=== PATIENT | male | born 1965 | race Caucasian/White ===

== ENCOUNTER 2016-11-16 09:51 | Emergency (ER) ==
[2016-11-16] MEDS ORDERED: ASPIRIN PO STA (10:00)
--- NOTE | 2016-11-16 10:12 | EKG Report ---
Test Performed on : 11/16/2016 09:58:29 AM Test Reason : CHEST PAIN Blood Pressure : / mmHG Vent. Rate : 071 BPM Atrial Rate : 071 BPM P-R Int : 170 ms QRS Dur : 088 ms QT Int : 408 ms P-R-T Axes : 045 003 031 degrees QTc Int : 443 ms Normal sinus rhythm. Normal ECG No previous ECGs available Unconfirmed Result
--- NOTE | 2016-11-16 10:12 | PROVIDER DOCUMENTATION ---
Addendum entered and electronically signed by Ramya Cabrera Scribe 11/16/16 13 :54: Attestation - Scribe Verification/Attestation Scribe:: Ramya Cabrera Acting as Scribe for:: Janet Medina Scribe documention review:: This chart was documented by a scribe and accurately reflects the service the provider performed and the decisions made by the provider. Original Note: HPI-Chest Pain - General Source: patient - History of Present Illness-CP Location: reports: substernal Chest Pain Radiation: reports: no radiation Quality of Pain: reports: tightness Severity in ED: moderate Onset/Duration: 24 hours ago Timing: still present Nitro Today/Relief: no nitro taken today Aspirin Treatment Today: 325 mg x 1, provided by ED Prior Chest Pain/Cardiac Workup: reports: no prior chest pain, no prior cardiac workup Similar Symptoms Previously?: No Recently Seen Here or By Another Healthcare Provider: No <Ramya Cabrera - Last Filed: 11/16/16 12:41> <Janet Medina - Last Filed: 11/16/16 13:45> - General Chief Complaint: Chest Pain Stated Complaint: CHEST PAIN/DIZZINESS/SOB Time Seen by Provider: 11/16/16 10:00 Allergies/Adverse Reactions: Patient Allergies Allergy/AdvReac Type Severity Reaction Status Date / Time No Known Allergies Allergy Verified 08/22/13 13:20 - History of Present Illness-CP Nature of Presenting Problem: Reports to er with cc of midsternal chest pain since yesterday while at work intermittently with sob and dizziness. Reports worsened last night upon laying down in bed states propped self up to sleep. Reports started again this am. Denies n,v,tingling,diaphoresis.No cardiac hx. No everyday meds. Reports use to have acid reflux until surgery in 2002 for chrons disease. Reports was belching last night. (Ramya Cabrera) Review of Systems - Adult - REVIEW OF SYSTEMS - ADULT Constitutional: denies: chills, fever, fatique Eyes: reports: no symptoms reported Ears, Nose, Mouth & Throat: denies: ear pain, sinus problem, throat pain Cardiovascular: reports: chest pain. denies: irregular heart rate, orthopnea, syncope Respiratory: reports: shortness of breath. denies: chronic cough, cough, wheezing Gastrointestinal: reports: no symptoms reported Genitourinary: reports: no symptoms reported Musculoskeletal: reports: no symptoms reported Integumentary: reports: no symptoms reported Neurological: reports: dizziness/vertigo. denies: headache/migraines, loss of balance, numbness, paresthesia Psychiatric: reports: no symptoms reported Endocrine: reports: no symptoms reported Hematologic/Lymphatic: reports: no symptoms reported Allergic/Immunologic: reports: no symptoms reported All Other Systems: Reviewed and Negative <Ramya Cabrera - Last Filed: 11/16/16 12:41> Past History - Adult - PAST MEDICAL HISTORY-ADULT Review of Records: reports: Nursing Assessment Review Major Childhood Illnesses: reports: denies history Cardiovascular: reports: denies history Genitourinary: reports: kidney stones - PRIOR SURGERIES/PROCEDURES Surgical/Procedure History: reports: other (colon sx) - IMMUNIZATION STATUS Childhood Immunizations: See Nurse Assessment Flu Vaccine: See Nurse Assessment - SOCIAL HISTORY Smoking: cigarettes, less than 1 pack/day Provider spent 3-5 mins advising pt. on dangers of tobacco.: Discussed manners to quit use, and f/u contacts for add'l counseling. Substance Use: alcohol <Ramya Cabrera - Last Filed: 11/16/16 12:41> Physical Exam-General - PHYSICAL EXAM-ADULT Initial Vital Signs Reviewed: Yes - CONSTITUTIONAL General Appearance: appears well, alert, no apparent distress - EYES Eyes: PERRL/EOMI - NECK Neck: non-tender, full range of motion, supple, normal inspection - RESPIRATORY Respiratory: chest non-tender, lungs clear, normal breath sounds, no pleuratic chest pain, no respiratory distress, no accessory muscle use - CARDIOVASCULAR Cardiovascular: normal peripheral pulses, regular rate, rhythm, no edema, no gallop, no JVD, no murmur - GASTROINTESTINAL (ABDOMEN) Abdominal Exam: non tender, soft, no organomegaly, no pulsatile mass - MUSCULOSKELETAL Back Exam: normal inspection, no CVA tenderness, no vertebral tenderness Extremity: normal range of motion, non-tender - SKIN Integumentary: normal color, normal turgor, warm/dry - NEUROLOGIC Neurologic: grossly normal - PSYCHIATRIC Psych/Mental Status: normal mood/affect, normal thought content, normal thought process, oriented x 3 <Ramya Cabrera - Last Filed: 11/16/16 12:41> Progress - EKG 1 Time of EKG reading by physician:: 09:58 EKG Read and Signed by:: Janet Medina EKG Interpretation (*Must complete 3 of following elements*): Normal Rate: 71 Rhythm: nsr [place]: normal QRS: normal - XRAY 1 XRAY: Bilateral XRAY Study: Chest Impression: Normal XRAY Interpretation: neg <Ramya Cabrera - Last Filed: 11/16/16 12:41> - REASSESSMENT Reassessment #1 Time Reassessed: 13:43 Status: improving (Pt feels much better after taking Ativan and burpped 4 times , reports his chest discomfort completely resolved. Wants to be discharged. Will f/u with PCP for an out patient stress test.) <Janet Medina - Last Filed: 11/16/16 13:45> - PLAN OF CARE/RESULTS Progress/Plan/Lab Results: Orders Category Date Time Status Cardiac Monitoring DIRECTED Care 11/16/16 10:01 Active Oxygen Therapy- ED Nursing DIRECTED Care 11/16/16 10:01 Active Saline Loc NOW Care 11/16/16 10:01 Active CHEST-2 VIEWS [RAD] Stat Exams 11/16/16 10:01 Taken CBC WITH ELECTRONIC DIFF [HEME] Stat Lab 11/16/16 10:07 Completed CK PROFILE [SP CHEM] Stat Lab 11/16/16 10:07 Received COMPREHENSIVE METABOLIC PANEL [CHEM] Stat Lab 11/16/16 10:07 Received D-DIMER PL [COAG] Stat Lab 11/16/16 10:07 Received LIPASE [CHEM] Stat Lab 11/16/16 10:07 Received MAGNESIUM [CHEM] Stat Lab 11/16/16 10:07 Received PRO B-NATRIURETIC PEPTIDE Stat Lab 11/16/16 10:07 Received PR[address]IME WITH INR PL [COAG] Stat Lab 11/16/16 10:[address] [COAG] Stat Lab 11/16/16 10:07 Received TROPONIN T Stat Lab 11/16/16 10:07 Received UDS [URINE DRUG SCREEN PL] Stat Lab 11/16/16 10:[address] W/POSS RFLX CULT [URINALYSIS] Stat Lab 11/16/16 10:02 Uncollected Aspirin Med 11/16/16 10:00 Discontinued 325 mg PO STAT STA EKG [EKG] Stat Ther 11/16/16 10:01 Draft Laboratory Tests 11/16/16 11/16/16 11/16/16 10:07 10:07 10:07 WBC RBC Hgb Hct MCV MCH MCHC RDW Std Deviation Plt Count MPV Immature Gran % (Auto) Neut % (Auto) Lymph % (Auto) [place] % (Auto) Eos % (Auto) Baso % (Auto) Immature Gran # (Auto) Neut # (Auto) Lymph # (Auto) [place] # (Auto) Eos # (Auto) Baso # (Auto) PT INR APTT (Factor Assay) D-Dimer Sodium 136 Potassium 4.1 Chloride 102 Carbon Dioxide 24 L Anion Gap 10 BUN 23 H Creatinine 0.8 Estimated GFR/1.73 m2 > 60 BUN/Creatinine Ratio 29 Glucose 108 H Calculated Osmolality 276 Calcium 10.1 Magnesium 2.0 Total Bilirubin 0.20 AST 25 ALT 27 Alkaline Phosphatase 93 Creatine Kinase 86 Troponin T < 0.010 Dow-U-Ygbobailqag Pept 47 Total Protein 6.9 Albumin 4.2 Globulin 3.0 Albumin/Globulin Ratio 2.0 Lipase Urine Source Urine Color Urine Clarity Urine pH Ur Specific [place] Urine Protein Urine Ketones Urine Blood Urine Nitrite Urine Bilirubin Urine Urobilinogen Urine Microscopic RBC Urine WBC Ur Epithelial Cells Urine Glucose Urine Opiates Screen Ur Oxycodone Screen Urine Methadone Screen Ur Barbituates Screen Ur Tricyclics Screen Ur Phencyclidine Scrn Ur Amphetamines Screen U Methamphetamines Scrn Urine MDMA Screen U Benzodiazepines Scrn Urine Cocaine Screen U Cannabinoids Screen 11/16/16 11/16/16 11/16/16 10:07 10:07 10:07 WBC 10.15 RBC 4.92 Hgb 15.0 Hct 44.7 MCV 90.9 MCH 30.5 MCHC 33.6 RDW Std Deviation 14.2 Plt Count 227 MPV 11.0 H Immature Gran % (Auto) 0.2 Neut % (Auto) 76.3 H Lymph % (Auto) 14.9 L [place] % (Auto) 7.5 Eos % (Auto) 0.9 Baso % (Auto) 0.2 Immature Gran # (Auto) 0.02 Neut # (Auto) 7.75 H Lymph # (Auto) 1.51 [place] # (Auto) 0.76 H Eos # (Auto) 0.09 Baso # (Auto) 0.02 PT 12.8 INR 0.93 APTT (Factor Assay) 28.1 D-Dimer 0.34 Sodium Potassium Chloride Carbon Dioxide Anion Gap BUN Creatinine Estimated GFR/1.73 m2 BUN/Creatinine Ratio Glucose Calculated Osmolality Calcium Magnesium Total Bilirubin AST ALT Alkaline Phosphatase Creatine Kinase Troponin T Zpd-J-Gownjnjwrqa Pept Total Protein Albumin Globulin Albumin/Globulin Ratio Lipase 18 Urine Source Urine Color Urine Clarity Urine pH Ur Specific [place] Urine Protein Urine Ketones Urine Blood Urine Nitrite Urine Bilirubin Urine Urobilinogen Urine Microscopic RBC Urine WBC Ur Epithelial Cells Urine Glucose Urine Opiates Screen Ur Oxycodone Screen Urine Methadone Screen Ur Barbituates Screen Ur Tricyclics Screen Ur Phencyclidine Scrn Ur Amphetamines Screen U Methamphetamines Scrn Urine MDMA Screen U Benzodiazepines Scrn Urine Cocaine Screen U Cannabinoids Screen 11/16/16 11/16/16 11/16/16 12:06 12:06 Unknown WBC RBC Hgb Hct MCV MCH MCHC RDW Std Deviation Plt Count MPV Immature Gran % (Auto) Neut % (Auto) Lymph % (Auto) [place] % (Auto) Eos % (Auto) Baso % (Auto) Immature Gran # (Auto) Neut # (Auto) Lymph # (Auto) [place] # (Auto) Eos # (Auto) Baso # (Auto) PT INR APTT (Factor Assay) D-Dimer Sodium Potassium Chloride Carbon Dioxide Anion Gap BUN Creatinine Estimated GFR/1.73 m2 BUN/Creatinine Ratio Glucose Calculated Osmolality Calcium Magnesium Total Bilirubin AST ALT Alkaline Phosphatase Creatine Kinase 78 Troponin T < 0.010 Cfv-P-Jvaqrxbznsc Pept Total Protein Albumin Globulin Albumin/Globulin Ratio Lipase Urine Source CLEAN CATCH Urine Color YELLOW Urine Clarity CLEAR Urine pH 6.5 Ur Specific [place] 1.010 Urine Protein NEGATIVE Urine Ketones NEGATIVE Urine Blood NEGATIVE Urine Nitrite NEGATIVE Urine Bilirubin NEGATIVE Urine Urobilinogen NORMAL Urine Microscopic RBC Not Reportable Urine WBC NEGATIVE Ur Epithelial Cells <10 Urine Glucose NEGATIVE Urine Opiates Screen Ur Oxycodone Screen Urine Methadone Screen Ur Barbituates Screen Ur Tricyclics Screen Ur Phencyclidine Scrn Ur Amphetamines Screen U Methamphetamines Scrn Urine MDMA Screen U Benzodiazepines Scrn Urine Cocaine Screen U Cannabinoids Screen 11/16/16 Unknown WBC RBC Hgb Hct MCV MCH MCHC RDW Std Deviation Plt Count MPV Immature Gran % (Auto) Neut % (Auto) Lymph % (Auto) [place] % (Auto) Eos % (Auto) Baso % (Auto) Immature Gran # (Auto) Neut # (Auto) Lymph # (Auto) [place] # (Auto) Eos # (Auto) Baso # (Auto) PT INR APTT (Factor Assay) D-Dimer Sodium Potassium Chloride Carbon Dioxide Anion Gap BUN Creatinine Estimated GFR/1.73 m2 BUN/Creatinine Ratio Glucose Calculated Osmolality Calcium Magnesium Total Bilirubin AST ALT Alkaline Phosphatase Creatine Kinase Troponin T Zng-E-Cxteoruqnpy Pept Total Protein Albumin Globulin Albumin/Globulin Ratio Lipase Urine Source Urine Color Urine Clarity Urine pH Ur Specific [place] Urine Protein Urine Ketones Urine Blood Urine Nitrite Urine Bilirubin Urine Urobilinogen Urine Microscopic RBC Urine WBC Ur Epithelial Cells Urine Glucose Urine Opiates Screen NONE DETECTED Ur Oxycodone Screen NONE DETECTED Urine Methadone Screen NONE DETECTED Ur Barbituates Screen NONE DETECTED Ur Tricyclics Screen NONE DETECTED Ur Phencyclidine Scrn NONE DETECTED Ur Amphetamines Screen NONE DETECTED U Methamphetamines Scrn NONE DETECTED Urine MDMA Screen NONE DETECTED U Benzodiazepines Scrn NONE DETECTED Urine Cocaine Screen NONE DETECTED U Cannabinoids Screen NONE DETECTED Vital Signs - 24 hr 11/16/16 11/16/16 11/16/16 10:00 10:30 11:30 Pulse Rate 76 66 62 Respiratory 20 16 16 Rate Blood Pressure 125/80 111/67 101/66 O2 Sat by Pulse 95 97 95 Oximetry Pt refused GI cocktail reports he isnt hurting and its not acid reflux. Pt now reports he thinks its anxiety and believes ativan would help agreed to give 1mg of ativan. (Ramya Cabrera) Laboratory Results - last 24 hr 11/16/16 11/16/16 11/16/16 10:07 10:07 10:07 WBC RBC Hgb Hct MCV MCH MCHC RDW Std Deviation Plt Count MPV Immature Gran % (Auto) Neut % (Auto) Lymph % (Auto) [place] % (Auto) Eos % (Auto) Baso % (Auto) Immature Gran # (Auto) Neut # (Auto) Lymph # (Auto) [place] # (Auto) Eos # (Auto) Baso # (Auto) PT INR APTT (Factor Assay) D-Dimer Sodium 136 Potassium 4.1 Chloride 102 Carbon Dioxide 24 L Anion Gap 10 BUN 23 H Creatinine 0.8 Estimated GFR/1.73 m2 > 60 BUN/Creatinine Ratio 29 Glucose 108 H Calculated Osmolality 276 Calcium 10.1 Magnesium 2.0 Total Bilirubin 0.20 AST 25 ALT 27 Alkaline Phosphatase 93 Creatine Kinase 86 Troponin T < 0.010 Hei-I-Tipomtfjnvl Pept 47 Total Protein 6.9 Albumin 4.2 Globulin 3.0 Albumin/Globulin Ratio 2.0 Lipase Urine Source Urine Color Urine Clarity Urine pH Ur Specific [place] Urine Protein Urine Ketones Urine Blood Urine Nitrite Urine Bilirubin Urine Urobilinogen Urine Microscopic RBC Urine WBC Ur Epithelial Cells Urine Glucose Urine Opiates Screen Ur Oxycodone Screen Urine Methadone Screen Ur Barbituates Screen Ur Tricyclics Screen Ur Phencyclidine Scrn Ur Amphetamines Screen U Methamphetamines Scrn Urine MDMA Screen U Benzodiazepines Scrn Urine Cocaine Screen U Cannabinoids Screen 11/16/16 11/16/16 11/16/16 10:07 10:07 10:07 WBC 10.15 RBC 4.92 Hgb 15.0 Hct 44.7 MCV 90.9 MCH 30.5 MCHC 33.6 RDW Std Deviation 14.2 Plt Count 227 MPV 11.0 H Immature Gran % (Auto) 0.2 Neut % (Auto) 76.3 H Lymph % (Auto) 14.9 L [place] % (Auto) 7.5 Eos % (Auto) 0.9 Baso % (Auto) 0.2 Immature Gran # (Auto) 0.02 Neut # (Auto) 7.75 H Lymph # (Auto) 1.51 [place] # (Auto) 0.76 H Eos # (Auto) 0.09 Baso # (Auto) 0.02 PT 12.8 INR 0.93 APTT (Factor Assay) 28.1 D-Dimer 0.34 Sodium Potassium Chloride Carbon Dioxide Anion Gap BUN Creatinine Estimated GFR/1.73 m2 BUN/Creatinine Ratio Glucose Calculated Osmolality Calcium Magnesium Total Bilirubin AST ALT Alkaline Phosphatase Creatine Kinase Troponin T Bnn-K-Jizcixxulbh Pept Total Protein Albumin Globulin Albumin/Globulin Ratio Lipase 18 Urine Source Urine Color Urine Clarity Urine pH Ur Specific [place] Urine Protein Urine Ketones Urine Blood Urine Nitrite Urine Bilirubin Urine Urobilinogen Urine Microscopic RBC Urine WBC Ur Epithelial Cells Urine Glucose Urine Opiates Screen Ur Oxycodone Screen Urine Methadone Screen Ur Barbituates Screen Ur Tricyclics Screen Ur Phencyclidine Scrn Ur Amphetamines Screen U Methamphetamines Scrn Urine MDMA Screen U Benzodiazepines Scrn Urine Cocaine Screen U Cannabinoids Screen 11/16/16 11/16/16 11/16/16 12:06 12:06 Unknown WBC RBC Hgb Hct MCV MCH MCHC RDW Std Deviation Plt Count MPV Immature Gran % (Auto) Neut % (Auto) Lymph % (Auto) [place] % (Auto) Eos % (Auto) Baso % (Auto) Immature Gran # (Auto) Neut # (Auto) Lymph # (Auto) [place] # (Auto) Eos # (Auto) Baso # (Auto) PT INR APTT (Factor Assay) D-Dimer Sodium Potassium Chloride Carbon Dioxide Anion Gap BUN Creatinine Estimated GFR/1.73 m2 BUN/Creatinine Ratio Glucose Calculated Osmolality Calcium Magnesium Total Bilirubin AST ALT Alkaline Phosphatase Creatine Kinase 78 Troponin T < 0.010 Zck-D-Nsuqrhwsvws Pept Total Protein Albumin Globulin Albumin/Globulin Ratio Lipase Urine Source CLEAN CATCH Urine Color YELLOW Urine Clarity CLEAR Urine pH 6.5 Ur Specific [place] 1.010 Urine Protein NEGATIVE Urine Ketones NEGATIVE Urine Blood NEGATIVE Urine Nitrite NEGATIVE Urine Bilirubin NEGATIVE Urine Urobilinogen NORMAL Urine Microscopic RBC Not Reportable Urine WBC NEGATIVE Ur Epithelial Cells <10 Urine Glucose NEGATIVE Urine Opiates Screen Ur Oxycodone Screen Urine Methadone Screen Ur Barbituates Screen Ur Tricyclics Screen Ur Phencyclidine Scrn Ur Amphetamines Screen U Methamphetamines Scrn Urine MDMA Screen U Benzodiazepines Scrn Urine Cocaine Screen U Cannabinoids Screen 11/16/16 Unknown WBC RBC Hgb Hct MCV MCH MCHC RDW Std Deviation Plt Count MPV Immature Gran % (Auto) Neut % (Auto) Lymph % (Auto) [place] % (Auto) Eos % (Auto) Baso % (Auto) Immature Gran # (Auto) Neut # (Auto) Lymph # (Auto) [place] # (Auto) Eos # (Auto) Baso # (Auto) PT INR APTT (Factor Assay) D-Dimer Sodium Potassium Chloride Carbon Dioxide Anion Gap BUN Creatinine Estimated GFR/1.73 m2 BUN/Creatinine Ratio Glucose Calculated Osmolality Calcium Magnesium Total Bilirubin AST ALT Alkaline Phosphatase Creatine Kinase Troponin T Upx-K-Dolfbgzeajr Pept Total Protein Albumin Globulin Albumin/Globulin Ratio Lipase Urine Source Urine Color Urine Clarity Urine pH Ur Specific [place] Urine Protein Urine Ketones Urine Blood Urine Nitrite Urine Bilirubin Urine Urobilinogen Urine Microscopic RBC Urine WBC Ur Epithelial Cells Urine Glucose Urine Opiates Screen NONE DETECTED Ur Oxycodone Screen NONE DETECTED Urine Methadone Screen NONE DETECTED Ur Barbituates Screen NONE DETECTED Ur Tricyclics Screen NONE DETECTED Ur Phencyclidine Scrn NONE DETECTED Ur Amphetamines Screen NONE DETECTED U Methamphetamines Scrn NONE DETECTED Urine MDMA Screen NONE DETECTED U Benzodiazepines Scrn NONE DETECTED Urine Cocaine Screen NONE DETECTED U Cannabinoids Screen NONE DETECTED Vital Signs Pulse Resp BP Pulse Ox 11/16/16 12:30 66 18 112/66 98 11/16/16 11:30 62 16 101/66 95 11/16/16 10:30 66 16 111/67 97 11/16/16 10:00 76 20 125/80 95 No Known Allergies Allergy (Verified 08/22/13 13:20) Laboratory 11/16/16 11/16/16 11/16/16 Unknown Unknown 12:06 WBC RBC Hgb Hct MCV MCH MCHC RDW Std Deviation Plt Count MPV Immature Gran % (Auto) Neut % (Auto) Lymph % (Auto) [place] % (Auto) Eos % (Auto) Baso % (Auto) Immature Gran # (Auto) Neut # (Auto) Lymph # (Auto) [place] # (Auto) Eos # (Auto) Baso # (Auto) PT INR APTT (Factor Assay) D-Dimer Sodium Potassium Chloride Carbon Dioxide Anion Gap BUN Creatinine Estimated GFR/1.73 m2 BUN/Creatinine Ratio Glucose Calculated Osmolality Calcium Magnesium Total Bilirubin AST ALT Alkaline Phosphatase Creatine Kinase Troponin T < 0.010 Vbt-E-Xnjcxmoqifs Pept Total Protein Albumin Globulin Albumin/Globulin Ratio Lipase Urine Source CLEAN CATCH Urine Color YELLOW Urine Clarity CLEAR Urine pH 6.5 Ur Specific [place] 1.010 Urine Protein NEGATIVE Urine Ketones NEGATIVE Urine Blood NEGATIVE Urine Nitrite NEGATIVE Urine Bilirubin NEGATIVE Urine Urobilinogen NORMAL Urine Microscopic RBC Not Reportable Urine WBC NEGATIVE Ur Epithelial Cells <10 Urine Glucose NEGATIVE Urine Opiates Screen NONE DETECTED Ur Oxycodone Screen NONE DETECTED Urine Methadone Screen NONE DETECTED Ur Barbituates Screen NONE DETECTED Ur Tricyclics Screen NONE DETECTED Ur Phencyclidine Scrn NONE DETECTED Ur Amphetamines Screen NONE DETECTED U Methamphetamines Scrn NONE DETECTED Urine MDMA Screen NONE DETECTED U Benzodiazepines Scrn NONE DETECTED Urine Cocaine Screen NONE DETECTED U Cannabinoids Screen NONE DETECTED 11/16/16 11/16/16 11/16/16 12:06 10:07 10:07 WBC RBC Hgb Hct MCV MCH MCHC RDW Std Deviation Plt Count MPV Immature Gran % (Auto) Neut % (Auto) Lymph % (Auto) [place] % (Auto) Eos % (Auto) Baso % (Auto) Immature Gran # (Auto) Neut # (Auto) Lymph # (Auto) [place] # (Auto) Eos # (Auto) Baso # (Auto) PT 12.8 INR 0.93 APTT (Factor Assay) 28.1 D-Dimer 0.34 Sodium Potassium Chloride Carbon Dioxide Anion Gap BUN Creatinine Estimated GFR/1.73 m2 BUN/Creatinine Ratio Glucose Calculated Osmolality Calcium Magnesium Total Bilirubin AST ALT Alkaline Phosphatase Creatine Kinase 78 Troponin T Ttk-F-Qsmiunqlbdg Pept Total Protein Albumin Globulin Albumin/Globulin Ratio Lipase 18 Urine Source Urine Color Urine Clarity Urine pH Ur Specific [place] Urine Protein Urine Ketones Urine Blood Urine Nitrite Urine Bilirubin Urine Urobilinogen Urine Microscopic RBC Urine WBC Ur Epithelial Cells Urine Glucose Urine Opiates Screen Ur Oxycodone Screen Urine Methadone Screen Ur Barbituates Screen Ur Tricyclics Screen Ur Phencyclidine Scrn Ur Amphetamines Screen U Methamphetamines Scrn Urine MDMA Screen U Benzodiazepines Scrn Urine Cocaine Screen U Cannabinoids Screen 11/16/16 11/16/16 11/16/16 10:07 10:07 10:07 WBC 10.15 RBC 4.92 Hgb 15.0 Hct 44.7 MCV 90.9 MCH 30.5 MCHC 33.6 RDW Std Deviation 14.2 Plt Count 227 MPV 11.0 H Immature Gran % (Auto) 0.2 Neut % (Auto) 76.3 H Lymph % (Auto) 14.9 L [place] % (Auto) 7.5 Eos % (Auto) 0.9 Baso % (Auto) 0.2 Immature Gran # (Auto) 0.02 Neut # (Auto) 7.75 H Lymph # (Auto) 1.51 [place] # (Auto) 0.76 H Eos # (Auto) 0.09 Baso # (Auto) 0.02 PT INR APTT (Factor Assay) D-Dimer Sodium Potassium Chloride Carbon Dioxide Anion Gap BUN Creatinine Estimated GFR/1.73 m2 BUN/Creatinine Ratio Glucose Calculated Osmolality Calcium Magnesium Total Bilirubin AST ALT Alkaline Phosphatase Creatine Kinase Troponin T < 0.010 Jwj-O-Xmdldbnawru Pept 47 Total Protein Albumin Globulin Albumin/Globulin Ratio Lipase Urine Source Urine Color Urine Clarity Urine pH Ur Specific [place] Urine Protein Urine Ketones Urine Blood Urine Nitrite Urine Bilirubin Urine Urobilinogen Urine Microscopic RBC Urine WBC Ur Epithelial Cells Urine Glucose Urine Opiates Screen Ur Oxycodone Screen Urine Methadone Screen Ur Barbituates Screen Ur Tricyclics Screen Ur Phencyclidine Scrn Ur Amphetamines Screen U Methamphetamines Scrn Urine MDMA Screen U Benzodiazepines Scrn Urine Cocaine Screen U Cannabinoids Screen 11/16/16 10:07 WBC RBC Hgb Hct MCV MCH MCHC RDW Std Deviation Plt Count MPV Immature Gran % (Auto) Neut % (Auto) Lymph % (Auto) [place] % (Auto) Eos % (Auto) Baso % (Auto) Immature Gran # (Auto) Neut # (Auto) Lymph # (Auto) [place] # (Auto) Eos # (Auto) Baso # (Auto) PT INR APTT (Factor Assay) D-Dimer Sodium 136 Potassium 4.1 Chloride 102 Carbon Dioxide 24 L Anion Gap 10 BUN 23 H Creatinine 0.8 Estimated GFR/1.73 m2 > 60 BUN/Creatinine Ratio 29 Glucose 108 H Calculated Osmolality 276 Calcium 10.1 Magnesium 2.0 Total Bilirubin 0.20 AST 25 ALT 27 Alkaline Phosphatase 93 Creatine Kinase 86 Troponin T Lbp-X-Envekruztft Pept Total Protein 6.9 Albumin 4.2 Globulin 3.0 Albumin/Globulin Ratio 2.0 Lipase Urine Source Urine Color Urine Clarity Urine pH Ur Specific [place] Urine Protein Urine Ketones Urine Blood Urine Nitrite Urine Bilirubin Urine Urobilinogen Urine Microscopic RBC Urine WBC Ur Epithelial Cells Urine Glucose Urine Opiates Screen Ur Oxycodone Screen Urine Methadone Screen Ur Barbituates Screen Ur Tricyclics Screen Ur Phencyclidine Scrn Ur Amphetamines Screen U Methamphetamines Scrn Urine MDMA Screen U Benzodiazepines Scrn Urine Cocaine Screen U Cannabinoids Screen Orders Category Date Time Status Cardiac Monitoring DIRECTED Care 11/16/16 10:01 Active Oxygen Therapy- ED Nursing DIRECTED Care 11/16/16 10:01 Active Saline Loc NOW Care 11/16/16 10:01 Active CHEST-2 VIEWS [RAD] Stat Exams 11/16/16 10:01 Draft CBC WITH ELECTRONIC DIFF [HEME] Stat Lab 11/16/16 10:07 Completed CK PROFILE [SP CHEM] Stat Lab 11/16/16 10:07 Completed CK PROFILE [SP CHEM] Stat Lab 11/16/16 12:06 Completed COMPREHENSIVE METABOLIC PANEL [CHEM] Stat Lab 11/16/16 10:07 Completed D-DIMER PL [COAG] Stat Lab 11/16/16 10:07 Completed LIPASE [CHEM] Stat Lab 11/16/16 10:07 Completed MAGNESIUM [CHEM] Stat Lab 11/16/16 10:07 Completed PRO B-NATRIURETIC PEPTIDE Stat Lab 11/16/16 10:07 Completed PROTIME WITH INR PL [COAG] Stat Lab 11/16/16 10:[address] [COAG] Stat Lab 11/16/16 10:07 Completed TROPONIN T Stat Lab 11/16/16 10:07 Completed TROPONIN T Stat Lab 11/16/16 12:06 Completed UDS [URINE DRUG SCREEN PL] Stat Lab 11/16/[address] W/POSS RFLX CULT [URINALYSIS] Stat Lab 11/16/16 Completed Aspirin Med 11/16/16 10:00 Discontinued 325 mg PO STAT STA Lido/Rollins Alk/Al&mg Hydrox [G.i. Cocktail] Med 11/16/16 12:00 Discontinued 30 ml PO NOW ONE Lorazepam [Ativan] Med 11/16/16 12:41 Discontinued 1 mg PO NOW ONE EKG [EKG] Stat Ther 11/16/16 10:01 Draft (Janet Medina) Departure <Ramya Cabrera - Last Filed: 11/16/16 12:41> - Departure Time of Disposition Order: 13:44 Certified Medical Emergency: Emergent <Janet Medina - Last Filed: 11/16/16 13:45> - Departure DIAGNOSIS: Atypical chest pain Disposition: HOME 01 Condition: Stable Additional Instructions: Follow up with regular MD in 2-3 days. Return to ER if your chest discomfort comes back. Referrals: None,PCP [Primary Care Provider] - Attestation - Scribe Verification/Attestation Scribe:: aRmya Cabrera Acting as Scribe for:: Janet Medina Scribe documention review:: This chart was documented by a scribe and accurately reflects the service the provider performed and the decisions made by the provider. <Ramya Cabrera - Last Filed: 11/16/16 12:41> Physician Attestation - Physician Attestation I, the provider, attest to the following statement:: Janet Medina Physician documentation Attestation:: This documentation recorded by the scribe accurately reflects the service I personally performed and the decisions made by me. <Ramya Cabrera - Last Filed: 11/16/16 12:41>
[2016-11-16 10:13] LABS: MANUAL DIFF NEEDED? NO
[2016-11-16 10:14] LABS: BASO% 0.2 % (0.0-0.8); EOS# 0.09 X1000 (0.0-0.7); EOS% 0.9 % (0.0-10.0); HEMATOCRIT 44.7 % (42.0-52.0); IMM GRAN# 0.02 X1000 (0.0-0.04); IMM GRAN% 0.2 % (0.0-0.5); LYMPH# 1.51 X1000 (1.2-3.4); LYMPH% 14.9 % (20.5-51.1); MCH 30.5 PG (27-31); MCHC 33.6 g/dL (33-37); MCV 90.9 FL (81-99); MONO# 0.76 X1000 (0.11-0.59); MONO% 7.5 % (1.7-9.3); NEUT% 76.3 % (42.2-75.2); PLT 227 X1000 (130-400); RBC 4.92 XMIL (4.7-6.1)
[2016-11-16 10:41] LABS: AGAP 10; ALBUMIN 4.2 g/dL (3.5-5.0); ALKALINE PHOSPHATASE 93 U/L (32-122); BUN 23 mg/dL (8-22); CALCIUM 10.1 mg/dL (8.8-10.2); CHLORIDE 102 mmol/L (98-107); CK PROFILE 86 U/L (24-204); COSMO 276; GOT 25 U/L (10-34); GPT 27 U/L (10-44); POTASSIUM 4.1 mmol/L (3.5-5.1); SODIUM 136 mmol/L (136-145); TCO2 24 mmol/L (25-35); TOTAL PROTEIN 6.9 g/dL (6.3-8.3)
[2016-11-16 10:45] LABS: INR 0.93 (0.86-1.15); PROTIME 12.8 Seconds (12.1-15.5); PTT PL 28.1 Seconds (22.6-43.9)
--- NOTE | 2016-11-16 10:52 | Diag Imaging Result Document ---
PROCEDURE NAME: CHEST-2 VIEWS - 11/16/2016 FRONTAL AND LATERAL CHEST, TWO VIEWS: COMPARISON: No comparison films. FINDINGS: The lungs are well expanded. The heart is not enlarged. The vessels are not distended. No pneumonia. No pleural effusions. No free air beneath the diaphragm. IMPRESSION: No acute abnormality.
[2016-11-16 11:26] LABS: URINE CULTURE PL NEEDED? NO; URINE SOURCE CLEAN CATCH
[2016-11-16 11:43] LABS: UR AMPHETAMINES QUAL NONE DETECTED (NONE DETECT); UR BARBITUATES QUAL NONE DETECTED (NONE DETECT); UR BENZODIAZEPIN QUAL NONE DETECTED (NONE DETECT); UR CANNABINOIDS QUAL NONE DETECTED (NONE DETECT); UR COCAINE QUAL NONE DETECTED (NONE DETECT); UR MDMA QUAL NONE DETECTED (NONE DETECT); UR METHADONE QUAL NONE DETECTED (NONE DETECT); UR METHAMPHETAMINE QUAL NONE DETECTED (NONE DETECT); UR OPIATES QUAL NONE DETECTED (NONE DETECT); UR OXYCODONE QUAL NONE DETECTED (NONE DETECT); UR PCP QUAL NONE DETECTED (NONE DETECT); UR TCA QUAL NONE DETECTED (NONE DETECT)
[2016-11-16 11:51] LABS: BILIRUBIN URINE NEGATIVE (NEGATIVE); BLOOD URINE NEGATIVE (NEGATIVE); CLARITY CLEAR (CLEAR); COLOR YELLOW; GLUCOSE URINE NEGATIVE (NEGATIVE); LEUKOCYTES URINE NEGATIVE (NEGATIVE); NITRITE URINE NEGATIVE (NEGATIVE); PH URINE 6.5; PROTEIN URINE NEGATIVE (NEGATIVE); UROBILINOGEN URINE NORMAL
[2016-11-16 11:52] LABS: URINE EPITHELIAL CELLS <10 /HPF (<10)
[2016-11-16] MEDS ORDERED: G.I. COCKTAIL PO ONE (12:00)
[2016-11-16] MEDS ORDERED: ATIVAN PO ONE (12:41)
[2016-11-16 14:09] VITALS: BP 113/77
== END 2016-11-16 14:09 | disposition home or self-care (01) ==
LOC: P.ED 09:51
DX: R07.89 Other chest pain (principal); R06.02 Shortness of breath; R42 Dizziness and giddiness; R14.2 Eructation; F17.210 Nicotine dependence, cigarettes, uncomplicated; Z71.6 Tobacco abuse counseling; Z87.442 Personal history of urinary calculi
CPT/HCPCS: 71020; 80053; 80305; 81001; 82550; 83690; 83735; 83880; 84484; 85025; 85379; 85610; 85730; 93005; 99284